=== PATIENT | male | born 1970 | race African-American/Black ===

== ENCOUNTER 2023-08-05 14:52 | Emergency (ER) | payer OTHER, SELFPAY ==
[2023-08-05 15:04] VITALS: BP 151/94
[2023-08-05 15:30] LABS: % Basophils 0.6 % (0-2); % Eosinophils 1.9 % (0-6); % Immature Granulocytes 0.3 % (0-0.5); % Lymphocytes 30.1 % (20.5-51.1); % Monocytes 9.3 % (1.7-9.3); % Neutrophils 57.8 % (42.2-75.2); Absolute Basophils 0.1 10^3/uL (0-0.2); Absolute Eosinophils 0.2 10^3/uL (0-0.7); Absolute Lymphocytes 3.7 10^3/uL (1.2-3.4); Absolute Monocytes 1.1 10^3/uL (0.1-0.6); Absolute Neutrophils 7.1 10^3/uL (1.4-6.5); Hematocrit 39.2 % (39.0-52.0); Hemoglobin 12.4 g/dL (13.0-18.0); Mean Corp Hgb Conc. 31.6 g/dL (33.0-37.0); Mean Corpuscular Hgb 22.4 pg (27.0-31.0); Mean Corpuscular Volume 70.8 fL (80.0-94.0); Mean Platelet Volume 9.3 fL (7.4-10.4); Nucleated Red Blood Cells % 0 % (-); Platelet Count 404 10^3/uL (130-400); Red Blood Cell Count 5.54 10^6/uL (4.70-6.10); Red Cell Dist. Width 16.3 % (11.5-14.5); White Blood Cell Count 12.3 10^3/uL (4.8-10.8)
[2023-08-05 15:40] LABS: INR 1.14; PT 14.4 Sec (11.4-14.6)
[2023-08-05 15:46] LABS: ALT (SGPT) 13 U/L (0-50); AST (SGOT) 20 U/L (17-59); Alkaline Phosphatase 88 U/L (38-126); Blood Urea Nitrogen 13 mg/dl (9-20); Calcium 9.3 mg/dl (8.4-10.2); Carbon Dioxide 30 mmol/L (22-30); Chloride 100 mmol/L (98-107); Glucose 107 mg/dl (70-99); Potassium 4.4 mmol/L (3.5-5.1); Sodium 135 mmol/L (135-145); Total Bilirubin 0.4 mg/dl (0.2-1.3); Total Protein 7.6 g/dl (6.3-8.2); eGFR > 60.00
[2023-08-05 15:58] LABS: Troponin I < 0.012 ng/ml
[2023-08-05 17:15] LABS: Glucose - Point of Care 158 mg/dl (70-99)
[2023-08-05 18:03] VITALS: BP 128/108
[2023-08-05 18:06] VITALS: BMI 48.9
--- NOTE | 2023-08-05 18:57 | ED.GENMED ---
History of Present Illness
General
Chief Complaint: Heart Rate Problem
Source: patient
Exam Limitations: none
Time Seen by Provider: 08/05/23 18:33
Nursing documentation reviewed up to this point in time: agreed with
Travel History
Have you had any contact with someone who has COVID-19?: No
Do you have any symptoms of coronavirus? Fever > 100 degrees, chills, cough, shortness of breath, sore throat, loss of taste or smell, muscle aches, or headache?: No
History of Present Illness
History of Present Illness:
53-year-old male presents emergency room complaining of pounding and irregular heart rate lasting about 20 minutes. He felt like he went into atrial fibrillation. He has a history of atrial fibrillation and takes Eliquis. He denies symptoms at
this time. He is frustrated because he feels that he has seen multiple doctors for this problem. He also reports mold in his house.
Past History
Past History
ED Past Medical History: Arrthythmia (Atrial fibrillation), HTN and IDDM
ED Past Surgical History: None
Social History
Tobacco: Non-smoker
Alcohol: None
Drug: None
Living: with roommate
Review of Systems
Review of Systems
Allergies reviewed?: Yes
All Other Systems: Not applicable
Constitutional: Reports no symptoms
EENT: Reports no symptoms
Respiratory: Reports no symptoms
Cardiac: Reports palpitations
ABD/GI: Reports no symptoms
: Reports no symptoms
Musculoskeletal: Reports no symptoms
Skin: Reports no symptoms
Neurological: Reports no symptoms
Endocrine: Reports no symptoms
Hematologic/Lymphatic: Reports no symptoms
Psychiatric: Reports no symptoms
Phy Exam
Physical Exam
Physical Exam:
Physical Exam
General: no apparent distress, not acutely ill
Neck: supple. no meningeal signs. normal posterior pharynx
Heart: s1/s2 regular rate and rhythm, no murmur. equal radial
pulses.
HEENT: Pupils equal round reactive to light, EOMI
Lungs: no acute respiratory distress. clear bilaterally
Abdomen: normal bowel sounds. not tender. no CVAT
Neuro: alert and oriented. no focal neurological deficits cranial nerves II through XII intact
Skin: no rash
Psychiatric: well kept. interactive and cooperative
Extremities: no edema. no calf tenderness. negative homans. good distal pulses
Course
Orders/Labs/Results
Orders:
Orders
08/05/23 14:57
Electrocardiogram (*1) Urgent
Reason for Study: Chest Pain
EKG- Treatment ONCE
08/05/23 15:19
Complete Blood Count/With Diff Urgent
Comprehensive Metabolic Panel Urgent
Prothrombin Time Urgent
Troponin I Urgent
08/05/23 18:57
CR Chest - 2 Views Urgent
Comment:
Reason For Exam: short of breath
Abnormal Lab Results
08/05/23 08/05/23
15:19 17:13
WBC 12.3 H 10^3/uL
(4.8-10.8)
Hgb 12.4 L g/dL
(13.0-18.0)
MCV 70.8 L fL
(80.0-94.0)
MCH 22.4 L pg
(27.0-31.0)
MCHC 31.6 L g/dL
(33.0-37.0)
RDW 16.3 H %
(11.5-14.5)
Plt Count 404 H 10^3/uL
(130-400)
Absolute Neuts (auto) 7.1 H 10^3/uL
(1.4-6.5)
Absolute Lymphs (auto) 3.7 H 10^3/uL
(1.2-3.4)
Absolute Monos (auto) 1.1 H 10^3/uL
(0.1-0.6)
Glucose 107 H mg/dl
(70-99)
POC Glucose 158 H mg/dl
(70-99)
08/05/23 15:19
08/05/23 15:19
Vital Signs
Initial and Last Documented VS:
Initial Vital Signs
Temp Pulse Resp BP Pulse Ox
98.1 F 75 20 151/94 98
08/05/23 15:04 08/05/23 15:04 08/05/23 15:04 08/05/23 15:04 08/05/23 15:04
Last Documented Vital Signs
Temp Pulse Resp BP Pulse Ox
98.1 F 60 14 147/86 100
08/05/23 15:04 08/05/23 19:43 08/05/23 19:43 08/05/23 19:43 08/05/23 19:43
MDM/Problems Addressed
Differential Diagnosis Includes:
pneumonia, dysrhythmia
MDM/Problems Addressed:
53-year-old male with heart palpitations, possible paroxysmal atrial fibrillation. Normal sinus rhythm in no distress in ED. 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
Chronic conditions affecting care: Arrhythmia
Acute Exacerbation and/or Progression of Chronic Illness: Arrhythmia
*Radiology
Radiology exam reviewed: preliminary read by ED provider (Chest x-ray no acute findings)
*Pulse Oximetry
Patient hypoxic: no
*EKG
Interpreted by ED Provider?: Yes
EKG Intrepretation Date: 08/05/23
EKG Intrepretation Time: 15:02
Interpretation: normal
Comparison EKG: no changes
Heart Rate: 73
Rate: normal
Rhythm: sinus
[place]: normal axis
Interval: normal interval
QRS Pattern: normal QRS
Ischemia: no ischemia
*Hospitality Host Interpretation
Rate: normal
Interpretation: normal
Heart Rate: 72
Rhythm: sinus
*Critical Care Note
Total Time (30-74mins, 75-104mins- exclusive of procedures): Not Applicable
Data Reviewed
Review of Other/Old Records Reveals: Discharge Summary (Discharge summary from 04/28/2023 for intermittent shortness of breath, multifactorial)
Source: records
Patient Management
Social determinants of health affecting care: Living situation
Escalation/DeEscalation of care consider admission/obs:
Admit not indicated
ED Attending Note
-
Portions of this chart may have been created with voice recognition software.� Occasional wrong word or��sound alike� substitutions may have occurred due to the inherent limitations of voice recognition software.
Discharge Plan
Departure
Patient Disposition: Home (Routine Discharge)
Date of Disposition: 08/05/23
Time of Disposition: 19:58
Patient with high blood pressure during this ER visit?: Yes
Condition: Good
Discharge Problem:
Palpitations
Instructions: Palpitations (DC), BLOOD PRESSURE
Prescriptions:
No Action
atorvastatin 10 mg Tablet
10 mg PO DAILY
Eliquis 5 mg Tablet
5 mg PO BID
albuterol sulfate 90 mcg/actuation Hfa Aerosol Inhaler
2 puff inhalation R Q4HPRN PRN (Reason: SOB/wheezing) Qty: 6.7 0RF
Arnuity Ellipta 100 mcg/actuation Blister With Device
1 inh INHALATION R DAILY
Referrals:
Aebl Orellana MD [Active] - Call in 1-3 days for appt
Lynn Banda DO [Family Provider] -
Interventions
Interventions:
*Risk Screen - Suicide Last Done: 08/05/23 15:04
*General Assessment Last Done: 08/05/23 15:04
*Neglect/Abuse Screening Last Done: 08/05/23 15:04
ED- Fall Risk Assessment Last Done: 08/05/23 18:07
*ED COVID-19 Vaccine History Last Done: 08/05/23 18:07
ED- Cardiac Assessment Last Done: 08/05/23 18:07
ED- Pulmonary Assessment Last Done: 08/05/23 18:07
Discharge Date and Time
Print Language: SWEDISH
[2023-08-05 19:43] VITALS: BP 147/86
[2023-08-05 20:00] VITALS: BP 140/88
[2023-08-05 20:44] LABS: Glucose - Point of Care 106 mg/dl (70-99)
[2023-08-05 21:00] VITALS: BP 146/89
[2023-08-05 21:18] LABS: Carboxyhemoglobin 1.7 %
[2023-08-05 22:00] VITALS: BP 149/90
== END 2023-08-05 22:25 | disposition home or self-care (01) ==
LOC: EMR 14:52
PROVIDERS: Emergency Medicine; EMERGENCY PHYSICIAN Emergency Medicine; FAMILY PHYSICIAN Family Medicine
DX: R00.2 Palpitations (principal); R06.02 Shortness of breath; I10 Essential (primary) hypertension; E11.9 Type 2 diabetes mellitus without complications; I48.91 Unspecified atrial fibrillation; Z77.120 Contact with and (suspected) exposure to mold (toxic); E78.5 Hyperlipidemia, unspecified; J45.909 Unspecified asthma, uncomplicated; G47.30 Sleep apnea, unspecified; Z79.01 Long term (current) use of anticoagulants; Z79.4 Long term (current) use of insulin; Z88.0 Allergy status to penicillin; Z88.8 Allergy status to other drugs, medicaments and biological substances
CPT/HCPCS: 99283; 71046; 80053; 82375; 82962; 84484; 85025; 85610; 93005

== ENCOUNTER 2023-08-20 07:11 | Day surgery (SDC) | payer OTHER, SELFPAY ==
[2023-08-20] VITALS (19 sets, daily range): BP systolic 107–205; BP diastolic 58–193; BMI 50.4
[2023-08-20 07:43] LABS: Blood Urea Nitrogen 18 mg/dl (9-20); Calcium 9.3 mg/dl (8.4-10.2); Carbon Dioxide 28 mmol/L (22-30); Chloride 102 mmol/L (98-107); Estimated Creatinine Clearance > 125 ml/min; Glucose 113 mg/dl (70-99); Potassium 4.6 mmol/L (3.5-5.1); Sodium 136 mmol/L (135-145); eGFR > 60.00
[2023-08-20] MEDS: ASPIRIN 325 MG PO (08:07)
[2023-08-20] MEDS: NSS 451 ML IV (08:09)
--- NOTE | 2023-08-20 09:13 | ITS.CL.CATH ---
Renal Technician - Catheterization
Cardiac Catheterization
Procedure Report:
LEFT HEART CATHETERIZATION
Date of Procedure: August 20, 2023
Procedures performed:
1: Coronary angiography
2: Left ventricular hemodynamic assessment
Primary Care Physician: Dr. Lynn Banda
Primary Senior Relationship Manager: Dr. Vikas Orellana
INDICATION: The patient is a 53-year-old male with a past medical history significant for hypertension, uds-xwpcpbu-ctyiuyffo diabetes, paroxysmal atrial fibrillation on Eliquis which was held for the procedure, and obesity who presents with
recurrent ER visits for chest pain. Nuclear perfusion imaging was abnormal and he is referred for coronary angiography.
ACCESS: The patient was prepped and draped in usual sterile fashion. A 5 [place] sheath was placed in the right radial artery using the Seldinger over the wire technique.
HEMODYNAMIC FINDINGS (mmHg):
LV(s/d,EDP): 150/20, 28
Ao(s/d,m): 150/89, 116
ANGIOGRAPHIC FINDINGS:
Single-plane Left Ventriculography in LEMUS Projection: Not done.
Coronary Angiography:
Dominance: Right
Left Main: Normal
Left Anterior Descending: The left anterior descending artery is a medium caliber vessel that gives rise to 2 major diagonal branches. These vessels are widely patent with very mild nonobstructive luminal irregularities and normal flow in all
vessels.
Left Circumflex: The left circumflex is a large-caliber nondominant vessel that gives rise to 1 major bifurcating obtuse marginal branch. These vessels are widely patent with normal flow.
Right Coronary: The right coronary artery is a huge dominant vessel that gives rise to a large posterior descending artery and large posterior left ventricular branch. Vessels are widely patent and appear angiographically normal.
Fluoroscopy Time (min): 2.5
Radiation Dose (mGy): 483
DAP (Gy.cm2): 30
Closure device: None. A TR band was applied for hemostasis at the right wrist.
Complications: None.
ASSESSMENT:
1: Near normal coronary arteries.
CONCLUSIONS and RECOMMENDATIONS:
1: Near normal coronary arteries.
2: Elevated left ventricular filling pressures.
Yovani Garcia M.D.
Copy to: Dr. Lynn Banda
== END 2023-08-20 12:58 | disposition home or self-care (01) ==
LOC: CATH 07:11
PROVIDERS: ATTENDING PHYSICIAN Internal Medicine Interventional Cardiology; FAMILY PHYSICIAN Family Medicine; OTHER PHYSICIAN Internal Medicine Cardiovascular Disease
DX: R07.9 Chest pain, unspecified (principal); E66.9 Obesity, unspecified; Z79.01 Long term (current) use of anticoagulants; I48.0 Paroxysmal atrial fibrillation; E11.9 Type 2 diabetes mellitus without complications; I10 Essential (primary) hypertension
CPT/HCPCS: 80048; 93458; C1894; Q9967

== ENCOUNTER 2023-09-15 13:54 | Emergency (ER) | payer OTHER, SELFPAY ==
[2023-09-15 13:56] VITALS: BP 178/108
--- NOTE | 2023-09-15 14:25 | ED.GENMED ---
History of Present Illness
General
Chief Complaint: Anal/Rectal Problem
Source: patient and records
Exam Limitations: none
Time Seen by Provider: 09/15/23 14:02
Nursing documentation reviewed up to this point in time: agreed with
Travel History
Have you had any contact with someone who has COVID-19?: No
Do you have any symptoms of coronavirus? Fever > 100 degrees, chills, cough, shortness of breath, sore throat, loss of taste or smell, muscle aches, or headache?: No
History of Present Illness
History of Present Illness:
53-year-old male presents emergency department complaining of rectal pain. Pain ongoing for about 10 days. He was seen at [place] emergency department and had a CT scan yesterday that was normal. He was prescribed Anusol. He was also given a
dose of Dilaudid. He states he was in so much pain that he did not let them examine him.
Past History
Past History
ED Past Medical History: Arrthythmia (Atrial fibrillation), HTN and IDDM
ED Past Surgical History: None
Social History
Tobacco: Non-smoker
Alcohol: None
Drug: None
Living: with roommate
Review of Systems
Review of Systems
Allergies reviewed?: Yes
All Other Systems: Not applicable
Constitutional: Reports no symptoms
EENT: Reports no symptoms
Respiratory: Reports no symptoms
Cardiac: Reports no symptoms
ABD/GI: Reports other (Rectal pain)
: Reports no symptoms
Musculoskeletal: Reports no symptoms
Skin: Reports no symptoms
Neurological: Reports no symptoms
Endocrine: Reports no symptoms
Hematologic/Lymphatic: Reports no symptoms
Phy Exam
Physical Exam
Physical Exam:
Physical Exam
General: no apparent distress, not acutely ill
Neck: supple. no meningeal signs. normal posterior pharynx
Heart: equal radial pulses.
HEENT: Pupils equal round reactive to light, EOMI
Lungs: no acute respiratory distress.
Abdomen: not tender. no CVAT, rectal exam shows tenderness at 12:00, possibly due to anal fissure
Neuro: alert and oriented. no focal neurological deficits
Skin: no rash
Psychiatric: well kept. interactive and cooperative
Extremities: no edema. good distal pulses
Course
Orders/Labs/Results
Orders:
Orders
09/15/23 14:21
Nitroglycerin Ointment [Nitro-Bid] 0.5 inch TOPICAL NOW STA
Vital Signs
Initial and Last Documented VS:
Initial Vital Signs
Temp Pulse Resp BP Pulse Ox
98.3 F 89 18 178/108 99
09/15/23 13:56 09/15/23 13:56 09/15/23 13:56 09/15/23 13:56 09/15/23 13:56
Last Documented Vital Signs
Temp Pulse Resp BP Pulse Ox
98.3 F 89 18 178/108 99
09/15/23 13:56 09/15/23 13:56 09/15/23 13:56 09/15/23 13:56 09/15/23 13:56
MDM/Problems Addressed
Differential Diagnosis Includes:
Hemorrhoid, anal fissure
MDM/Problems Addressed:
53-year-old male with rectal pain, anal fissure versus hemorrhoid. Will add nitroglycerin to treatment regimen, follow-up with GI as scheduled.
Chronic conditions affecting care: Arrhythmia
Acute Exacerbation and/or Progression of Chronic Illness: Arrhythmia
*Pulse Oximetry
Patient hypoxic: no
*EKG
Interpreted by ED Provider?: NA
*Campaign Management Senior Manager Interpretation
Rate: Campaign Management Senior Manager- N/A
*Critical Care Note
Total Time (30-74mins, 75-104mins- exclusive of procedures): Not Applicable
Data Reviewed
Review of Other/Old Records Reveals: Records (Prior visits for shortness of breath)
Patient Management
Social determinants of health affecting care: Strong social support
Escalation/DeEscalation of care consider admission/obs:
Admit not indicated
ED Attending Note
-
Portions of this chart may have been created with voice recognition software.� Occasional wrong word or��sound alike� substitutions may have occurred due to the inherent limitations of voice recognition software.
Discharge Plan
Departure
Patient Disposition: Home (Routine Discharge)
Date of Disposition: 09/15/23
Time of Disposition: 14:33
Patient with high blood pressure during this ER visit?: Yes
Condition: Good
Discharge Problem:
Anal or rectal pain
Instructions: Anal Fissure, Adult ED
Prescriptions:
New
nitroglycerin [Rectiv] 0.4 % (w/w) ointment
1 inch WI BID PRN (Reason: rectal pain) Qty: 30 0RF
No Action
Eliquis 5 mg Tablet
5 mg PO BID
albuterol sulfate 90 mcg/actuation Hfa Aerosol Inhaler
2 puff inhalation R Q4HPRN PRN (Reason: SOB/wheezing) Qty: 6.7 0RF
amlodipine 2.5 mg Tablet
2.5 mg PO DAILY
famotidine 40 mg Tablet
40 mg PO BID
montelukast 10 mg Tablet
10 mg PO DAILY
hydrochlorothiazide 12.5 mg tablet
12.5 mg PO DAILY Qty: 1 0RF
Activity Restrictions/Additional Instructions:
Follow-up with gastroenterology as scheduled
Interventions
Interventions:
*Risk Screen - Suicide Last Done: 09/15/23 13:56
*General Assessment Last Done: 09/15/23 13:56
*Neglect/Abuse Screening Last Done: 09/15/23 13:56
*ED COVID-19 Vaccine History Last Done: 09/15/23 13:56
Discharge Date and Time
Print Language: UKRAINIAN
[2023-09-15] MEDS: NITRO-BID 0.5 INCH TOPICAL (14:54)
[2023-09-15 15:16] VITALS: BP 134/81
== END 2023-09-15 15:18 | disposition home or self-care (01) ==
LOC: EMR 13:54
PROVIDERS: EMERGENCY PHYSICIAN Emergency Medicine; FAMILY PHYSICIAN Family Medicine
DX: K62.89 Other specified diseases of anus and rectum (principal); I48.91 Unspecified atrial fibrillation; I10 Essential (primary) hypertension; E11.9 Type 2 diabetes mellitus without complications
CPT/HCPCS: 99282; 96360; 99284

== ENCOUNTER 2023-12-10 06:24 | Day surgery (SDC) | payer OTHER, SELFPAY ==
[2023-12-10 08:28] VITALS: BMI 46.3
[2023-12-10 08:40] VITALS: BMI 46.3
[2023-12-10 08:46] VITALS: BP 116/63
[2023-12-10 09:07] LABS: Glucose - Point of Care 89 mg/dl (70-99)
[2023-12-10] MEDS: TYLENOL 1000 MG PO (09:09)
[2023-12-10] MEDS: CELEBREX 200 MG PO (09:09)
[2023-12-10] MEDS: NORMOSOL-R 1000 IV (09:09)
--- NOTE | 2023-12-10 09:54 | W.PN.UPDATE ---
Update Note
Progress Note Update
I met the patient in the preop area to discuss how he is doing and the surgery. He explained that he hasn't had any quynh-anal pain for several weeks now. He's not had any bleeding either. His bowel habits have improved and not having constipation.
He explained that he could feel the hemorrhoids still and thought that was why he was here now. I explained that our primary focus was treating the fissure as his hemorrhoids were 'small to moderate' on our initial exam and could be treated first
with topicals or rubber-band ligation. I explained the risks of anesthesia and that I think it would be better to defer the surgery if his fissure has healed because we still have options for treating the hemorrhoids that don't require anesthesia.
In considering the risks of anesthesia, he stated his preference would also be to defer surgery and try non-op measures for the hemorrhoids first. All other questions were answered and the patient was appreciative. I informed the nursing and
anesthesia staff that the surgery was canceled.
== END 2023-12-10 10:05 | disposition home or self-care (01) ==
LOC: SDS 06:24
PROVIDERS: ATTENDING PHYSICIAN Surgery; FAMILY PHYSICIAN Family Medicine; OTHER PHYSICIAN Internal Medicine Cardiovascular Disease
DX: K60.2 Anal fissure, unspecified (principal); K64.8 Other hemorrhoids; K62.89 Other specified diseases of anus and rectum; Z53.8 Procedure and treatment not carried out for other reasons
CPT/HCPCS: 46200; 36415; 82962; 93005

== ENCOUNTER 2024-07-17 14:53 | Emergency (ER) | payer OTHER, SELFPAY ==
[2024-07-17 15:03] VITALS: BP 158/91
[2024-07-17 15:25] LABS: % Basophils 0.8 % (0-2); % Eosinophils 2.3 % (0-6); % Immature Granulocytes 0.3 % (0-0.5); % Lymphocytes 22.4 % (20.5-51.1); % Monocytes 11.5 % (1.7-9.3); % Neutrophils 62.7 % (42.2-75.2); Absolute Basophils 0.1 10^3/uL (0-0.2); Absolute Eosinophils 0.2 10^3/uL (0-0.7); Absolute Lymphocytes 1.9 10^3/uL (1.2-3.4); Absolute Neutrophils 5.4 10^3/uL (1.4-6.5); Hematocrit 37.5 % (39.0-52.0); Hemoglobin 11.7 g/dL (13.0-18.0); Mean Corp Hgb Conc. 31.2 g/dL (33.0-37.0); Mean Corpuscular Hgb 22.8 pg (27.0-31.0); Mean Corpuscular Volume 73.1 fL (80.0-94.0); Mean Platelet Volume 9.1 fL (7.4-10.4); Nucleated Red Blood Cells % 0 % (-); Platelet Count 291 10^3/uL (130-400); Red Blood Cell Count 5.13 10^6/uL (4.70-6.10); Red Cell Dist. Width 15.2 % (11.5-14.5); White Blood Cell Count 8.7 10^3/uL (4.8-10.8)
[2024-07-17 15:45] LABS: ALT (SGPT) 13 U/L (0-50); AST (SGOT) 19 U/L (17-59); Alkaline Phosphatase 76 U/L (38-126); Blood Urea Nitrogen 11 mg/dl (9-20); Calcium 9.2 mg/dl (8.4-10.2); Carbon Dioxide 29 mmol/L (22-30); Chloride 104 mmol/L (98-107); Glucose 91 mg/dl (70-99); Potassium 4.6 mmol/L (3.5-5.1); Sodium 140 mmol/L (135-145); Total Bilirubin 0.8 mg/dl (0.2-1.3); Total Protein 7.1 g/dl (6.3-8.2); eGFR > 60.00
[2024-07-17 15:56] LABS: NT-proBNP 104 pg/ml; Troponin I < 0.012 ng/ml
[2024-07-17 16:17] LABS: TSH Reflex To Free T4 0.71 uIU/ml (0.47-4.68)
[2024-07-17 16:56] VITALS: BMI 48.5
[2024-07-17 17:01] VITALS: BP 151/87
--- NOTE | 2024-07-17 17:53 | ED.GENMED ---
History of Present Illness
General
Chief Complaint: Heart Rate Problem
Source: patient
Exam Limitations: none
Time Seen by Provider: 07/17/24 17:44
Nursing documentation reviewed up to this point in time: agreed with
History of Present Illness
History of Present Illness:
The patient is a 54-year-old man with a past medical history of high blood pressure, hyperlipidemia and A-fib who reports that he recently wore a Holter monitor and returned it yesterday. Patient reports he recently was evaluated by Dr. Zheng
who discontinued his blood thinners. Patient reports he has been having multiple symptoms for almost 2 years, which he attributes to long-term effects from carbon monoxide exposure. Patient reports twitching of both eyes, tingling of the left side
of his face, and fatigue. Patient denies shortness of breath and chest pain to me. He denies numbness and weakness. He denies vision changes and double vision. He denies headaches. Patient reports he just does not feel well and this has been
going on for almost 2 years, and he is been evaluated by multiple specialists. Patient reports that he believes he may have cancer or some autoimmune disease and nobody can diagnose. Patient reports that he is able to use his CPAP at night but
still thinks that he does not get a good night sleep. Patient denies any specific pain to me.
Past History
Past History
ED Past Medical History: Arrthythmia (Atrial fibrillation), HTN and IDDM
ED Past Surgical History: None
Social History
Tobacco: Non-smoker
Alcohol: None
Drug: None
Personal: Other
Living: with roommate
Employment: Other
Family History
Family History: Other
Review of Systems
Review of Systems
Allergies reviewed?: Yes
All Other Systems: ROS reviewed and negative except as documented in HPI and ROS
Constitutional: Reports fatigue
EENT: Reports other (Eye twitching)
Respiratory: Reports no symptoms
Cardiac: Reports no symptoms
ABD/GI: Reports no symptoms
: Reports no symptoms
Musculoskeletal: Reports no symptoms
Skin: Reports no symptoms
Neurological: Reports other (' Tingling of both sides of face', most recently left side but currently has had no symptoms of either side for several days)
Endocrine: Reports no symptoms
Hematologic/Lymphatic: Reports no symptoms
Psychiatric: Reports no symptoms
Phy Exam
Physical Exam
Physical Exam:
Physical Exam
General: no apparent distress, not acutely ill. Comfortable appearing
Neck: supple. no meningeal signs. normal psoterior pharynx
Heart: s1/s2 regular rate and rhythm, no murmur. equal radial pulses.
Lungs: no acute respiratory distress. clear bilaterally. Breathes comfortably
Abdomen: normal bowel sounds. not tender. no CVAT
Neuro: alert and oriented. no focal neurological deficits
Skin: no rash
Psychiatric: well kept. interactive and cooperative
Extremities: no edema. no calf tenderness. negative homans. good distal pulses
Course
Orders/Labs/Results
Orders:
Orders
07/17/24 15:08
ECG [Electrocardiogram (*1)] Urgent
Reason for Study: Palpitations
EKG- Treatment ONCE
07/17/24 15:18
Complete Blood Count/With Diff Urgent
Comprehensive Metabolic Panel Urgent
NT-proBNP Urgent
TSH Reflex To Free T4 Urgent
Troponin I Urgent
Abnormal Lab Results
07/17/24
15:18
Hgb 11.7 L g/dL
(13.0-18.0)
Hct 37.5 L %
(39.0-52.0)
MCV 73.1 L fL
(80.0-94.0)
MCH 22.8 L pg
(27.0-31.0)
MCHC 31.2 L g/dL
(33.0-37.0)
RDW 15.2 H %
(11.5-14.5)
Absolute Monos (auto) 1.0 H 10^3/uL
(0.1-0.6)
Monocytes % 11.5 H %
(1.7-9.3)
07/17/24 15:18
07/17/24 15:18
Vital Signs
Initial and Last Documented VS:
Initial Vital Signs
Temp Pulse Resp BP Pulse Ox
98.7 F 63 16 158/91 100
07/17/24 15:03 07/17/24 15:03 07/17/24 15:03 07/17/24 15:03 07/17/24 15:03
Last Documented Vital Signs
Temp Pulse Resp BP Pulse Ox
98.3 F 59 18 151/90 100
07/17/24 17:01 07/17/24 18:00 07/17/24 17:45 07/17/24 18:00 07/17/24 18:00
MDM/Problems Addressed
Differential Diagnosis Includes:
Acute hyponatremia, acute hypokalemia, pneumonia
MDM/Problems Addressed:
Patient reports chronic fatigue, tingling in various parts of his body, bilateral eye twitching
Chronic conditions affecting care: Arrhythmia
Acute Exacerbation and/or Progression of Chronic Illness:
Patient is a normal sinus rhythm without any complaints of chest pain, palpitations or shortness of breath
Acute Exacerbation and/or Progression of Chronic Illness: Arrhythmia
*Pulse Oximetry
Patient hypoxic: no
*EKG
Interpreted by ED Provider?: Yes
Interpretation: abnormal
Comparison EKG: changes noted
Rate: normal
Rhythm: sinus and PAC's
[place]: normal axis
Interval: normal interval
QRS Pattern: normal QRS
Ischemia: no ischemia
*Staker Surveying Interpretation
Rate: normal
Interpretation: normal
Rhythm: sinus
*Critical Care Note
Total Time (30-74mins, 75-104mins- exclusive of procedures): Not Applicable
Data Reviewed
Review of Other/Old Records Reveals: Testing (Cardiac cath done in August 2023 which shows essentially no sign of coronary artery disease)
Source: patient
Patient Management
Social determinants of health affecting care: Living situation and Strong social support
Escalation/DeEscalation of care consider admission/obs:
Patient appears well and comfortable. He has a normal neurological exam and has excellent strength and sensation in bilateral face and extremities. He denies any current acute shortness of breath or chest pain.
ED Attending Note
-
Portions of this chart may have been created with voice recognition software.� Occasional wrong word or��sound alike� substitutions may have occurred due to the inherent limitations of voice recognition software.
Discharge Plan
Departure
Patient Disposition: Home (Routine Discharge)
Date of Disposition: 07/17/24
Time of Disposition: 18:04
Patient with high blood pressure during this ER visit?: Yes
Condition: Good
Covid-19: Not Applicable
Discharge Problem:
Paresthesia
Instructions: Palpitations ED, BLOOD PRESSURE
Prescriptions:
No Action
Eliquis 5 mg Tablet
5 mg PO BID
lisinopril 5 mg Tablet
5 mg PO DAILY
Colon Cleanse
1 dose PO QPM
Sodium Chloride Powder
1 tsp PO DAILY
psyllium husk
1 dose PO DAILY
Referrals:
Lynn Banda, DO [Family Provider] -
Activity Restrictions/Additional Instructions:
Return for any weakness or numbness on one side your body. Return for any difficulty speaking. Return for chest pain or shortness of breath.
Interventions
Interventions:
*Risk Screen - Suicide Last Done: 07/17/24 16:58
*General Assessment Last Done: 07/17/24 16:58
*Neglect/Abuse Screening Last Done: 07/17/24 16:58
*ED- Fall Risk Assessment Last Done: 07/17/24 16:57
*ED COVID-19 Vaccine History Last Done: 07/17/24 16:57
*Nursing Disposition Last Done: 07/17/24 18:15
ED- Cardiac Assessment Last Done: 07/17/24 17:03
ED- Pulmonary Assessment Last Done: 07/17/24 17:03
Discharge Date and Time
Print Language: [id number]
[2024-07-17 18:00] VITALS: BP 151/90
== END 2024-07-17 18:16 | disposition home or self-care (01) ==
LOC: EMR 14:53
PROVIDERS: Emergency Medicine; EMERGENCY PHYSICIAN Emergency Medicine; FAMILY PHYSICIAN Family Medicine
DX: R20.2 Paresthesia of skin (principal); I10 Essential (primary) hypertension; E11.9 Type 2 diabetes mellitus without complications; E78.00 Pure hypercholesterolemia, unspecified; I48.91 Unspecified atrial fibrillation
CPT/HCPCS: 99283; 80053; 83880; 84443; 84484; 85025; 93005

== ENCOUNTER 2024-12-09 15:12 | Emergency (ER) | payer OTHER, SELFPAY ==
[2024-12-09] VITALS (7 sets, daily range): BP systolic 136–155; BP diastolic 78–95; BMI 48.3
[2024-12-09 15:51] LABS: Hematocrit 39.5 % (39.0-52.0); Hemoglobin 12.2 g/dL (13.0-18.0); Mean Corp Hgb Conc. 30.9 g/dL (33.0-37.0); Mean Corpuscular Volume 72.7 fL (80.0-94.0); Nucleated Red Blood Cells % 0 % (-); Platelet Count 293 10^3/uL (130-400); Red Cell Dist. Width 15.3 % (11.5-14.5)
[2024-12-09 16:01] LABS: ALT (SGPT) 14 U/L (0-50); AST (SGOT) 20 U/L (17-59); Albumin 4.1 g/dl (3.5-5.0); Alkaline Phosphatase 64 U/L (38-126); Blood Urea Nitrogen 16 mg/dl (9-20); Calcium 9.2 mg/dl (8.4-10.2); Carbon Dioxide 29 mmol/L (22-30); Chloride 102 mmol/L (98-107); Glucose 98 mg/dl (70-99); Potassium 4.3 mmol/L (3.5-5.1); Sodium 136 mmol/L (135-145); Total Protein 7.4 g/dl (6.3-8.2); eGFR > 60.00
[2024-12-09 16:11] LABS: Troponin I < 0.012 ng/ml
[2024-12-09 21:44] LABS: Glucose - Point of Care 77 mg/dl (70-99)
--- NOTE | 2024-12-09 22:25 | ED.GENMED ---
History of Present Illness
General
Chief Complaint: Breathing Problem
Source: patient
Exam Limitations: none
Time Seen by Provider: 12/09/24 20:22
Nursing documentation reviewed up to this point in time: agreed with
History of Present Illness
History of Present Illness:
Patient to ED doctors' hospital complaint of difficutly swallowing. States 2 weeks ago he had oral sex with his . After that his symptoms began. He reports feeling like his throat is thick or that there is mucous blocking. He feels that his voice is
hourse. Denies any pain. No fever/chills. No cough or SOB. Eating and drinking without difficulty.
Past History
Past History
ED Past Medical History: Arrthythmia (Atrial fibrillation), HTN and IDDM
ED Past Surgical History: None
Social History
Tobacco: Non-smoker
Alcohol: None
Drug: None
Personal: Other
Living: with roommate
Employment: Other
Family History
Family History: Other
Phy Exam
General Physical Exam
General Presentation: well appearing and no apparent distress
General age: appears stated age
General Skin: warm and dry
General Habitus: normal
General Mental: alert
ENT Exam
ENT Exam: pharynx normal, neck supple and swallowing well
Cardiovascular Exam
Cardiovascular Exam: regular rate/rhythm and no edema
Pulmonary Exam
Pulmonary Exam: lungs clear, no respiratory distress and no stridor
Musculoskeletal Exam
Musculoskeletal Exam: full ROM
Skin Exam
Skin Exam: normal color, warm/dry and no rash
Psychiatric Exam
Psychiatric Exam: normal mood/affect
Course
Orders/Labs/Results
Orders:
Orders
12/09/24 15:20
Electrocardiogram (*1) Urgent
Reason for Study: Chest Pain
EKG- Treatment ONCE
12/09/24 15:31
Complete Blood Count/With Diff Urgent
Comprehensive Metabolic Panel Urgent
Troponin I Urgent
12/09/24 20:51
CR Chest - 2 Views Urgent
Comment:
Reason For Exam: SOB
Soft Tissue, Neck [CR Soft Tissue Neck ] Urgent
Comment:
Reason For Exam: difficulty swallowing
12/09/24 21:[address] [CT Neck With Iv Contrast] Urgent
Comment:
Reason For Exam: difficulty swallowing, enlarged epiglotis on xray.
Abnormal Lab Results
12/09/24
15:31
Hgb 12.2 L g/dL
(13.0-18.0)
MCV 72.7 L fL
(80.0-94.0)
MCH 22.5 L pg
(27.0-31.0)
MCHC 30.9 L g/dL
(33.0-37.0)
RDW 15.3 H %
(11.5-14.5)
Absolute Monos (auto) 1.0 H 10^3/uL
(0.1-0.6)
Monocytes % 10.1 H %
(1.7-9.3)
12/09/24 15:31
12/09/24 15:31
Vital Signs
Initial and Last Documented VS:
Initial Vital Signs
Temp Pulse Resp BP Pulse Ox
97.7 F 75 18 144/81 98
12/09/24 15:15 12/09/24 15:15 12/09/24 15:15 12/09/24 15:15 12/09/24 15:15
Last Documented Vital Signs
Temp Pulse Resp BP Pulse Ox
97.9 F 57 17 144/84 98
12/09/24 20:45 12/09/24 20:45 12/09/24 20:45 12/09/24 20:42 12/09/24 22:33
*Pulse Oximetry
SaO2: 98
Oxygen Mode of Delivery: Room air
Update Note
Update Note:
Patient to ED wtih report of difficulty swallowing x 2 weeks. Feels like there is mucous or something preventing him from swallowing normally. Tolerating own secretions. VSS, afebrile. Labs reviewed WBC 9.5 CMP normal. CXR NAD. Pulse ox 99%
RA. Soft tissue neck shows appearance of thickened epiglottis. Case discussed with Dr. Link. Will order CT of neck. Dr. Link to assume care.
ED Attending Note
-
Portions of this chart may have been created with voice recognition software.� Occasional wrong word or��sound alike� substitutions may have occurred due to the inherent limitations of voice recognition software.
Discharge Plan
Departure
Prescriptions:
No Action
Eliquis 5 mg Tablet
5 mg PO BID
lisinopril 5 mg Tablet
5 mg PO DAILY
Colon Cleanse
1 dose PO QPM
Sodium Chloride Powder
1 tsp PO DAILY
psyllium husk
1 dose PO DAILY
Referrals:
Lynn Banda DO [Family Provider, Family Practice]
Interventions
Interventions:
*Risk Screen - Suicide Last Done: 12/09/24 15:15
*General Assessment Last Done: 12/09/24 15:15
*Neglect/Abuse Screening Last Done: 12/09/24 15:15
*ED- Fall Risk Assessment Last Done: 12/09/24 20:35
*ED COVID-19 Vaccine History Last Done: 12/09/24 20:35
ED- Cardiac Assessment Last Done: 12/09/24 20:35
ED- Pulmonary Assessment Last Done: 12/09/24 20:35
Discharge Date and Time
Print Language: [id number]
[2024-12-10 00:45] VITALS: BP 155/95
== END 2024-12-10 00:46 | disposition home or self-care (01) ==
LOC: EMR 15:12
PROVIDERS: Emergency Medicine; EMERGENCY PHYSICIAN Emergency Medicine; FAMILY PHYSICIAN Family Medicine
DX: R06.02 Shortness of breath (principal); E10.9 Type 1 diabetes mellitus without complications; I48.91 Unspecified atrial fibrillation; I10 Essential (primary) hypertension; Z79.4 Long term (current) use of insulin; Z79.01 Long term (current) use of anticoagulants
CPT/HCPCS: 99284; 70360; 70491; 71046; 80053; 82962; 84484; 85025; 93005; Q9967